=== PATIENT | female | born 1970 | race Caucasian/White ===

== ENCOUNTER 2019-05-04 11:35 | Day surgery (SDC) | payer OTHER ==
[~2019-05-04] VITALS: Ht 172.7 cm; Wt 81.2 kg
[~2019-05-04 11:35] MED LIST: FENTANYL PF 250 MCG/5ML ONE; LIDOCAINE/PF 1%-EPI 1:200K, 30 ML ONE; MIDAZOLAM 1 MG/ML, 2ML ONE; ROPIvacaine/PF 0.5%, 30 ML ONE
[2019-05-04] MEDS ORDERED: LACTATED RINGERS 1,000 ML IV SCH (12:13)
[2019-05-04] MEDS ORDERED: ALLEGRA PO (12:15)
[2019-05-04] MEDS ORDERED: GLUC1CAP48 PO (12:15)
[2019-05-04] MEDS ORDERED: IBUP-1222 PO (12:15)
[2019-05-04] MEDS ORDERED: GABA300C10 PO (12:15)
[2019-05-04 12:20] LABS: HCG UR SG 1.007 (1.003-1.030)
[2019-05-04 12:30] VITALS: BP 117/80
[2019-05-04] MEDS ORDERED: SCOPOLAMINE PATCH, 1.5MG PATCH.TD72 TD ONE (12:30)
[2019-05-04] MEDS ORDERED: GABAPENTIN 300 MG CAPSULE PO ONE (12:30)
[2019-05-04] MEDS ORDERED: ACETAMINOPHEN 500 MG TABLET PO ONE (12:30)
[2019-05-04] MEDS ORDERED: ONDANSETRON 2MG/ML, 2ML ONE (12:45)
[2019-05-04] MEDS ORDERED: ROCURONIUM 10 MG/ML,10ML ONE (12:45)
[2019-05-04] MEDS ORDERED: CEFAZOLIN 1,000 MG ONE (12:45)
[2019-05-04] MEDS ORDERED: SUCCINYLCHOLINE 20 MG/ML, 10ML ONE (12:45)
[2019-05-04] MEDS ORDERED: PROPOFOL 10 MG/ML, 20ML ONE (12:45)
[2019-05-04] MEDS ORDERED: DEXAMETHASONE 4 MG/ML, 1ML ONE (12:45)
[2019-05-04] MEDS ORDERED: ONDANSETRON 2MG/ML, 2ML IVPush PRN (13:30)
[2019-05-04] MEDS ORDERED: METOCLOPRAMIDE 5 MG/ML, 2ML IV PRN (13:30)
[2019-05-04] MEDS ORDERED: HYDROmorphone 1 MG/ML, 1ML INJ IV PRN (13:30)
[2019-05-04] MEDS ORDERED: PROMETHAZINE 25 MG/ML, 1ML IV PRN (13:30)
[2019-05-04] MEDS ORDERED: KETOROLAC 30 MG/1 ML IV PRN (13:30)
[2019-05-04] MEDS ORDERED: hydrALAzine 20 MG/ML, 1ML IV PRN (13:30)
[2019-05-04] MEDS ORDERED: ALBUTEROL SULFATE 2.5 MG/3 ML NPPB PRN (13:30)
[2019-05-04] MEDS ORDERED: LABETALOL 5MG/ML, 20ML IV PRN (13:30)
[2019-05-04] MEDS ORDERED: OXYcodone 5 MG/5 ML ORAL.SOL UDC PO PRN (13:30)
[2019-05-04] MEDS ORDERED: MEPERIDINE/PF 25MG/0.5ML IVPush PRN (13:30)
[2019-05-04] MEDS ORDERED: HYDROmorphone 1 MG/ML, 1ML VIAL ONE (14:07)
[2019-05-04] MEDS ORDERED: FENTANYL PF 100 MCG/2ML ONE (14:07)
[2019-05-04] MEDS: FENTANYL PF 100 MCG/2ML IV PRN ×2 (14:08→14:15)
== END 2019-05-04 16:20 | disposition home or self-care (01) ==
LOC: OUT 11:35
PROVIDERS: ATTEND Orthopaedic Surgery
DX: S83.512A Sprain of anterior cruciate ligament of left knee, initial encounter (principal); S83.232A Complex tear of medial meniscus, current injury, left knee, initial encounter; M22.42 Chondromalacia patellae, left knee; J45.909 Unspecified asthma, uncomplicated; Z72.89 Other problems related to lifestyle; Z79.891 Long term (current) use of opiate analgesic; Z82.61 Family history of arthritis; Z82.3 Family history of stroke; Z82.49 Family history of ischemic heart disease and other diseases of the circulatory system; X58.XXXA Exposure to other specified factors, initial encounter; Y93.39 Activity, other involving climbing, rappelling and jumping off; Y92.812 Truck as the place of occurrence of the external cause; Y99.8 Other external cause status
CPT/HCPCS: 29881; 29888; 64447; 81025; C1713; C1762; J0330; J0690; J1100; J1170; J2250; J2405; J2704; J2795; J3010; J3490; J7120